=== PATIENT | female | born 1960 | race Caucasian/White ===

== ENCOUNTER → 2016-06-21 | Outpatient (CLI) | payer MEDICAID ==
[~2016-06-21] MED LIST: CYCL5TAB PO; DICL50TA4 PO; LISI-552 PO; ROSU10TA PO
--- NOTE | 2016-06-21 16:22 | Diagnostic Imaging Report ---
INDICATION: Fell on knee. EXAMINATION: Four views, nonweightbearing, were obtained. FINDINGS: Joint space is well preserved. Articulating surfaces are smooth. Patellofemoral joint appears normal. No fractures are demonstrated. IMPRESSION: Negative left knee. Dictated by: Dictated on workstation # [id number]
== END ==
LOC: RAD 14:54
PROVIDERS: ATTEND Nurse Practitioner Family
DX: S83.91XA Sprain of unspecified site of right knee, initial encounter (principal); S83.92XA Sprain of unspecified site of left knee, initial encounter; W19.XXXA Unspecified fall, initial encounter; Y99.8 Other external cause status

== ENCOUNTER 2016-06-30 22:19 | Emergency (ER) | payer MEDICAID ==
[~2016-06-30] VITALS: Ht 165.1 cm; Wt 90.7 kg
[2016-06-30] MEDS ORDERED: LISI-552 PO (22:51)
[2016-06-30] MEDS ORDERED: CYCL5TAB PO (22:51)
[2016-06-30] MEDS ORDERED: ROSU10TA PO (22:51)
--- NOTE | 2016-06-30 22:56 | ED Upper Extremity ---
General Chief Complaint: Upper Extremity Stated Complaint: FALL/R SHOULDER PAIN Source: patient, RN notes reviewed Exam Limitations: no limitations History of Present Illness Time seen by provider: 22:56 Initial Comments As above and below. Fell on 06/20 and injured shoulder. Ran out of hydrocodone yesterday and pain has worsened since. Severity: moderate (8/10) Pain/Injury Location: right shoulder Method of Injury: fell Modifying Factors: Worse With Movement, Improves With Pain Medication ( currently out of x 24 hours) Allergies and Home Medications Allergies Coded Allergies: morphine (Verified Allergy, Unknown, 06/30/16) Home Medications Cyclobenzaprine HCl 5 Mg Tablet, Unknown Dose PO, (Reported) Diclofenac Potassium 50 Mg Tablet, 50 MG PO Q8H PRN for SHOULDER PAIN, #30 Ref 0 Prescribed by: BORIS CABRAL on 06/30/162328 Lisinopril 20 Mg Tablet, Unknown Dose PO DAILY, (Reported) Rosuvastatin Calcium 10 Mg Tablet, Unknown Dose PO, (Reported) Constitutional: see HPI : No Musculoskeletal: see HPI, other (right shoulder pain) All Other Systems Reviewed Negative Unless Noted: Yes (Negative excepted noted.) Past Fpqhcgi-Guasrl-Xjaqee Hx Patient Social History Alcohol Use: Occasionally Uses Recreational Drug Use: No Smoking Status: Current Everyday Smoker Type Used: Cigarettes 2nd Hand Smoke Exposure: Yes Recent Foreign Travel: No Contact w/Someone Who Travel: No Recent Hopitalizations: No Seasonal Allergies Seasonal Allergies: No Surgeries HX Surgeries: Yes (LEFT SHOULDER) Surgeries: Oophorectomy, Orthopedic Respiratory Hx Respiratory Disorders: No Cardiovascular Hx Cardiac Disorders: Yes Cardiac Disorders: High Cholesterol, Hypertension Neurological Hx Neurological Disorders: No Reproductive System Hx Reproductive Disorders: No Genitourinary Hx Genitourinary Disorders: No Gastrointestinal Hx Gastrointestinal Disorders: No Musculoskeletal Hx Musculoskeletal Disorders: No Endocrine Hx Endocrine Disorders: No HEENT HX ENT Disorders: No Cancer Hx Cancer: No Psychosocial Hx Psychiatric Problems: No Integumentary HX Skin/Integumentary Disorder: No Blood Transfusions Hx Blood Disorders: No Physical Exam Vital Signs Vital Sign - Last 12Hours 06/30/16 22:52 Temp 98.8 Pulse 99 Resp 18 B/P (MAP) 133/98 Pulse Ox 95 O2 Delivery Room Air Capillary Refill : General Appearance: WD/WN, no apparent distress Neck: normal inspection Cardiovascular: regular rate, rhythm Respiratory: no respiratory distress Shoulder: No deformity, No ecchymosis, limited ROM (right shoulder), pain ( pain right shoulder), No swelling Neurologic/Psychiatric: no motor/sensory deficits, alert, oriented x 3 Skin: warm/dry Progress/Results/Core Measures Results/Orders My Orders Orders - BORIS CABRAL DO Im/Sub-Q Injection Non-Ab Ed (06/30/16 ) Vital Signs/I&O Diagnostic Imaging Diagonstic Imaging: Xray Plain Films/CT/US/NM/MRI: other (right shoulder reveals DJD AC joint but nothing acute) Departure Impression Impression: Primary Impression: Fall Additional Impression: Shoulder pain, acute Disposition: HOME, SELF-CARE Condition: Stable Departure-Patient Inst. Decision time for Depature: 23:26 Referrals: CHITO ALAN DO Patient Instructions: Bursitis (DC), How to Use a Shoulder Sling Add. Discharge Instructions: All discharge instructions reviewed with patient and/or family. Voiced understanding. WILL NEED ORTHOPEDIC FOLLOW UP IF NOT DOING BETTER IN NEXT 5-7 DAYS. MAY NEED A MRI FOR STARTERS. Scripts Diclofenac Potassium (Diclofenac Potassium) 50 Mg Tablet 50 MG PO Q8H Y for SHOULDER PAIN, #30 TAB 0 Refills Prov: BORIS CABRAL DO 06/30/16 BORIS CABRAL DO Jun 30, 2016 22:56
[2016-06-30] MEDS ORDERED: DICL50TA4 PO (23:29)
[2016-06-30] MEDS ORDERED: DEXAMETHASONE PF 10 MG/ML (DECADRON) VIAL IM ONE (23:30)
[2016-06-30] MEDS ORDERED: RX-TRAMADOL 50 MG (ULTRAM) TAB PPK#4 PO STA (23:31)
[2016-06-30 23:40] VITALS: BP 139/87
--- NOTE | 2016-07-01 08:08 | Diagnostic Imaging Report ---
INDICATION: Fall with right shoulder pain AP, oblique, and transscapular views the right shoulder are obtained. No fracture or dislocation is seen. There is no acute bony abnormality. There is degenerative change of the AC joint. There are some calcifications at the rotator cuff insertion which may represent calcific tendinitis. IMPRESSION: Findings compatible with calcific tendinitis as well as degenerative change of the AC joint. No acute fracture or dislocation. Dictated by: Dictated on workstation # [id number]
== END 2016-06-30 23:37 | disposition home or self-care (01) ==
LOC: EDUNIT# 22:19 → ER 22:21
DX: S49.91XA Unspecified injury of right shoulder and upper arm, initial encounter (principal); I10 Essential (primary) hypertension; F17.210 Nicotine dependence, cigarettes, uncomplicated; W19.XXXA Unspecified fall, initial encounter; Y99.8 Other external cause status
CPT/HCPCS: 73030; 96372; 99283

== ENCOUNTER 2016-12-22 18:46 | Emergency (ER) | payer OTHER, MEDICAID ==
[~2016-12-22] VITALS: Ht 165.1 cm; Wt 97.5 kg
[2016-12-22] MEDS ORDERED: TETANUS,DIPTH,PERTUSS P/F (BOOSTRIX) 0.5 ML VIAL IM STA (19:49)
[2016-12-22] MEDS ORDERED: HYDROcodone/APAP 7.5 MG/325 MG (LORTAB, LORCET PLUS) TABLET PO STA (19:49)
--- NOTE | 2016-12-22 19:53 | ED Fall/Injury ---
General Chief Complaint: Upper Extremity Stated Complaint: FALL/L ARM/WRIST PAIN Nursing Triage Note: pt reports l wrist,l shoulder, r/l knee, l ankle, and r hip pain after falling on a concrete step coming out of the [facility]. pt reports it was around 1640. Source: patient Exam Limitations: no limitations History of Present Illness Time seen by provider: 19:53 Initial Comments 56 yo female patient presents to the ED with c/o falling after tripping on a broken concrete step at the [facility] at 1640 today. Patient c/o left wrist pain, left shoulder pain, bilat knee pain, rt hip pain, neck pain, and headache. Denies LOC, confusion, numbness, weakness, or back pain. Occurred: other (1640 today) Injuries/Pain Location: neck, upper extremity, lower extremity Context: tripped Loss of Consciousness: no loss of consciousness Modifying Factors: Worse With Movement Allergies and Home Medications Allergies Coded Allergies: morphine (Verified Allergy, Unknown, 06/30/16) Home Medications Cyclobenzaprine HCl 10 Mg Tablet, 10 MG PO Q8H PRN for SPASMS, #10 Ref 0 Prescribed by: RENAE HUI on 12/22/162112 Lisinopril 20 Mg Tablet, Unknown Dose PO DAILY, (Reported) Rosuvastatin Calcium 10 Mg Tablet, Unknown Dose PO, (Reported) Tramadol HCl 50 Mg Tablet, 50 MG PO Q4H PRN for pain, #14 Ref 0 Prescribed by: RENAE HUI on 12/22/162112 Constitutional: no symptoms reported Eyes: No Symptoms Reported Ears, Nose, Mouth, Throat: no symptoms reported Respiratory: No cough, No short of breath Cardiovascular: No chest pain, No palpitations Gastrointestinal: no symptoms reported Genitourinary: no symptoms reported Musculoskeletal: No back pain, joint pain, joint swelling, neck pain Skin: change in color (bruising of the bilateral knees), other (abrasions of the bilat knees) Psychiatric/Neurological: Denies Headache, Denies Numbness, Denies Paresthesia , Denies Seizure, Denies Tingling, Denies Weakness All Other Systems Reviewed Negative Unless Noted: Yes (Negative excepted noted.) Past Mxphovc-Ftwbbg-Bhdeee Hx Patient Social History Alcohol Use: Occasionally Uses Number of Drinks Today: AA Alcohol Beverage of Choice: Beer Recreational Drug Use: No Smoking Status: Former Smoker Type Used: Cigarettes Former Smoker, Quit: Dec 04, 2015 2nd Hand Smoke Exposure: Yes Recent Foreign Travel: No Contact w/Someone Who Travel: No Recent Infectious Disease Expo: No Recent Hopitalizations: No Physical Abuse: No Sexual Abuse: No Mistreated: No Fear: No Immunizations Up To Date Tetanus Booster (TDap): Unknown Seasonal Allergies Seasonal Allergies: No Surgeries History of Surgeries: Yes (LEFT SHOULDER) Surgeries: Oophorectomy, Orthopedic Respiratory History of Respiratory Disorde: No Cardiovascular History of Cardiac Disorders: Yes Cardiac Disorders: High Cholesterol, Hypertension Neurological History of Neurological Disord: No Reproductive System Hx Reproductive Disorders: No Gastrointestinal History of Gastrointestinal Di: No Musculoskeletal History of Musculoskeletal Dis: No Endocrine History of Endocrine Disorders: No Cancer History of Cancer: No Psychosocial History of Psychiatric Problem: No Suicide Risk Score: 0 Integumentary History of Skin or Integumenta: No Blood Transfusions History of Blood Disorders: No Reviewed Nursing Assessment Reviewed/Agree w Nursing PMH: Yes Family Medical History Significant Family History: No Pertinent Family Hx Physical Exam Vital Signs Vital Sign - Last 12Hours 12/22/16 19:25 Temp 97.0 Pulse 98 Resp 18 B/P (MAP) 140/91 Pulse Ox 98 Capillary Refill : Less Than 3 Seconds General Appearance: WD/WN, no apparent distress HEENT: PERRL/EOMI, normal ENT inspection, TMs normal, pharynx normal, other ( normocephalic, atraumatic) Neck: full range of motion, supple, normal inspection, tender lateral, No tender midline Cardiovascular: normal peripheral pulses, regular rate, rhythm, no murmur Respiratory: lungs clear, normal breath sounds, no respiratory distress, no accessory muscle use, other (left anterior ribs and clavicle ttp without swelling or ecchymosis.) Peripheral Pulses: 2+ Dorsalis Pedis (R), 2+ Left Dors-Pedis (L), 2+ Radial Pulses (R), 2+ Radial Pulses (L) Gastrointestinal: normal bowel sounds, non tender, soft, no organomegaly Back: normal inspection, no vertebral tenderness Extremities: normal capillary refill, pelvis stable, other (left proximal humerus, left forearm, left wrist, and left hand TTP. Mild swelling noted of the proximal humerus and left wrist. Bilat hips, bilateral knees TTP. Ecchymosis, abrasions, and mild swelling noted of the anterior knees bilaterally.) Neurologic/Psychiatric: rotary surface grinder II-XII nml as tested, no motor/sensory deficits, alert, normal mood/affect, oriented x 3 Skin: normal color, warm/dry, ecchymosis (bilateral anterior knee ecchymosis and abrasions noted.) [place] Coma Score Best Eye Response: (4) Open Spontaneously Best Verbal Response: (5) Oriented Best Motor Response: (6) Obeys Commands Reina Total: 15 Progress/Results/Core Measures Results/Orders My Orders Orders - RENAE HUI PA Chest 1 View, Ap/Pa Only (12/22/16 19:49) Forearm, Left, 2 Views (12/22/16 19:49) Humerus, Left, 2 Views (12/22/16 19:49) Wrist, Left, 3 Views Or More (12/22/16 19:49) Knee, Left, 3 Views (12/22/16 19:49) Pelvis (12/22/16 19:49) Ct Cervical Spine Wo (12/22/16 19:49) Dipht,Pertuss(Acell),Tet Adult (Boostrix (12/22/16 19:49) Hydrocodone/Apap 7.5/325 Tab (Lortab 7. (12/22/16 19:49) Vaccine Administration Single (12/22/16 ) Vital Signs/I&O Vital Sign - Last 12Hours 12/22/16 12/22/16 19:25 21:21 Temp 97.0 Pulse 98 84 Resp 18 16 B/P (MAP) 140/91 Pulse Ox 98 95 Blood Pressure Mean: 107 Diagnostic Imaging Diagonstic Imaging: CT Plain Films/CT/US/NM/MRI: c-spine Comments FINDINGS: There is no identified facet joint subluxation or dislocation. There are multilevel very mild facet degenerative changes of the cervical spine. There is no asymmetric widening of the cervical disc spaces. There is no identified acute fracture of the cervical spine. There are multilevel disc and uncovertebral degenerative changes of the cervical spine. There is moderate disc height loss at C5-C6 and C6-C7 with posterior osteophytes at these levels. CT is limited for assessment of disc pathology as well as assessing non-bony causes of foraminal and spinal stenosis. There are mild degenerative changes at the C1-C2 articulation. Very partially visualized portions of the lung apices are clear. IMPRESSION: 1. No identified acute abnormality of the cervical spine. 2. Moderate disc and uncovertebral degenerative changes of the cervical spine most notable at C5-C6 and C6-C7. Dictated by: Dictated on workstation # [id number] Reviewed: Reviewed by Me (radiology report reviewed by me) Diagonstic Imaging: Xray Plain Films/CT/US/NM/MRI: other (wrist) Comments FINDINGS: There is an area of cystic change within the waist of the scaphoid. There is no identified acute fracture or dislocation. There is no radiopaque foreign body. Joint spaces are relatively well preserved. IMPRESSION: 1. No identified acute bony abnormality of the left wrist. Dictated by: Dictated on workstation # [id number] Reviewed: Reviewed by Me (radiology report reviewed by me) Diagonstic Imaging: Xray Plain Films/CT/US/NM/MRI: pelvis Comments FINDINGS: The hips are not obviously dislocated. There is no abnormal widening of the pubic symphysis or sacroiliac joints. There is no identified acute fracture. There are facet degenerative changes at L5-S1. There is mild degenerative type enthesopathy at the bilateral greater trochanters and iliac crests. IMPRESSION: No identified acute bony abnormality of the pelvis. Dictated by: Dictated on workstation # [id number] Reviewed: Reviewed by Me (radiology report reviewed by me) Diagonstic Imaging: Xray Plain Films/CT/US/NM/MRI: forearm Comments FINDINGS: There is degenerative type enthesopathy adjacent to the proximal common flexor and common extensor tendon attachments. There is no identified large elbow joint effusion. There is no identified acute fracture of the radius or ulna. There is no radiopaque foreign body. IMPRESSION: No identified acute bony abnormality of the left forearm. Dictated by: Dictated on workstation # [id number] Reviewed: Reviewed by Me (radiology report reviewed by me) Diagonstic Imaging: Xray Plain Films/CT/US/NM/MRI: chest Comments FINDINGS: Heart size and mediastinal contours are unremarkable. There is no identified pneumothorax. There is no large pleural effusion. There is no identified focal airspace consolidation. There are mild right acromioclavicular degenerative changes. There is no identified significantly displaced rib fracture. IMPRESSION: No identified acute cardiopulmonary abnormality. Dictated by: Dictated on workstation # [id number] Reviewed: Reviewed by Me (radiology report reviewed by me) Diagonstic Imaging: Xray Plain Films/CT/US/NM/MRI: knee Comments FINDINGS: There is a small ossification projecting near the femoral origin of the superficial component of the medial collateral ligament complex. This potentially may reflect sequela of remote prior medial collateral ligament injury. The lateral view is obliquely positioned. There is no identified left knee joint effusion. There is degenerative type enthesopathy at the distal quadriceps tendon attachment. There is no pronounced patellofemoral compartment joint space loss. There are small patellofemoral compartment osteophytes. The medial and lateral compartments are not significantly narrowed. There is no identified acute fracture. IMPRESSION: 1. No identified acute bony abnormality of the left knee. 2. Mild patellofemoral compartment osteoarthritis. 3. Sequela of remote prior medial collateral ligament injury. Dictated by: Dictated on workstation # [id number] Reviewed: Reviewed by Me (radiology report reviewed by me) Diagonstic Imaging: Xray Plain Films/CT/US/NM/MRI: other (left humerus) Comments FINDINGS: There are mild left acromioclavicular degenerative changes. There is questionable mild widening of the left acromioclavicular joint. Correlation clinically may be helpful. There is no obvious dislocation of the left glenohumeral joint. There is limited evaluation of the shoulder on radiographs of the humerus. There is degenerative type enthesophyte formation at the origin of the common proximal flexor and extensor tendons. There is no identified acute fracture. There is limited evaluation at the level of the elbow joint. IMPRESSION: 1. Question mild widening of the left acromioclavicular joint which could relate to acromioclavicular joint separation injury. Recommend correlation clinically. 2. Mild left acromioclavicular degenerative changes. 3. No identified acute fracture. Dictated by: Dictated on workstation # [id number] Reviewed: Reviewed by Me (radiology report reviewed by me) Departure Communication (Admissions) Progress Notes all diagnostic findings discussed with the patient. plan for dsch to home. Patient instructed to f/u with her PCP if no improvement in symptoms. Impression Impression: Primary Impression: Neck muscle strain Qualified Codes: S16.1XXA - Strain of muscle, fascia and tendon at neck level , initial encounter Additional Impressions: Sprain of wrist, left Qualified Codes: S63.502A - Unspecified sprain of left wrist, initial encounter Left shoulder strain Qualified Codes: S46.912A - Strain of unspecified muscle, fascia and tendon at shoulder and upper arm level, left arm, initial encounter Contusion of knee, left Qualified Codes: S80.02XA - Contusion of left knee, initial encounter Contusion of knee, right Qualified Codes: S80.01XA - Contusion of right knee, initial encounter Abrasion of knee, left Qualified Codes: S80.212A - Abrasion, left knee, initial encounter Abrasion of knee, right Qualified Codes: S80.211A - Abrasion, right knee, initial encounter Disposition: 01 HOME, SELF-CARE Condition: Improved Departure-Patient Inst. Decision time for Depature: 21:09 Referrals: NO,LOCAL PHYSICIAN (PCP/Family) Primary Care Physician Patient Instructions: Common Wrist Injuries (DC), Muscle Strain (DC) Add. Discharge Instructions: All discharge instructions reviewed with patient and/or family. Voiced understanding. Medications as instructed. Ibuprofen 800 mg by mouth every 8 hours as needed for pain. Tylenol extra strength [id number] as directed for pain. Ice pack for 20 minute intervals for 2-3 days, then use a heating pad as needed for pain. No lifting or strenuous activity in 5-7 days, then increase activity as tolerated. Follow-up with your primary care physician for recheck if no improvement in symptoms. Return to the emergency department for worsened symptoms or any other concerns. Scripts Cyclobenzaprine HCl (Cyclobenzaprine HCl) 10 Mg Tablet 10 MG PO Q8H Y for SPASMS, #10 TAB 0 Refills Prov: RENAE HUI 12/22/16 Tramadol HCl (Tramadol HCl) 50 Mg Tablet 50 MG PO Q4H Y for pain, #14 TAB 0 Refills Prov: RENAE HUI 12/22/16 Work/School Note: Local [employer]ing RENAE HUI Dec 22, 2016 19:53
--- NOTE | 2016-12-22 20:32 | Diagnostic Imaging Report ---
EXAMINATION: Left forearm, 2 views. COMPARISON: None. HISTORY: 56-year-old female, fall. Left forearm pain. FINDINGS: There is degenerative type enthesopathy adjacent to the proximal common flexor and common extensor tendon attachments. There is no identified large elbow joint effusion. There is no identified acute fracture of the radius or ulna. There is no radiopaque foreign body. IMPRESSION: No identified acute bony abnormality of the left forearm. Dictated by: Dictated on workstation # [id number]
--- NOTE | 2016-12-22 20:33 | Diagnostic Imaging Report ---
EXAMINATION: Left wrist, 3 views. COMPARISON: None. HISTORY: 56-year-old female, fall. Left wrist pain. FINDINGS: There is an area of cystic change within the waist of the scaphoid. There is no identified acute fracture or dislocation. There is no radiopaque foreign body. Joint spaces are relatively well preserved. IMPRESSION: 1. No identified acute bony abnormality of the left wrist. Dictated by: Dictated on workstation # [id number]
--- NOTE | 2016-12-22 20:35 | Diagnostic Imaging Report ---
EXAMINATION: Pelvis, single view. COMPARISON: None. HISTORY: 56-year-old female, fall. Left hip pain. FINDINGS: The hips are not obviously dislocated. There is no abnormal widening of the pubic symphysis or sacroiliac joints. There is no identified acute fracture. There are facet degenerative changes at L5-S1. There is mild degenerative type enthesopathy at the bilateral greater trochanters and iliac crests. IMPRESSION: No identified acute bony abnormality of the pelvis. Dictated by: Dictated on workstation # [id number]
--- NOTE | 2016-12-22 20:37 | Diagnostic Imaging Report ---
EXAMINATION: Left humerus, 2 views. COMPARISON: None. HISTORY: 56-year-old female, fall. Left arm pain. FINDINGS: There are mild left acromioclavicular degenerative changes. There is questionable mild widening of the left acromioclavicular joint. Correlation clinically may be helpful. There is no obvious dislocation of the left glenohumeral joint. There is limited evaluation of the shoulder on radiographs of the humerus. There is degenerative type enthesophyte formation at the origin of the common proximal flexor and extensor tendons. There is no identified acute fracture. There is limited evaluation at the level of the elbow joint. IMPRESSION: 1. Question mild widening of the left acromioclavicular joint which could relate to acromioclavicular joint separation injury. Recommend correlation clinically. 2. Mild left acromioclavicular degenerative changes. 3. No identified acute fracture. Dictated by: Dictated on workstation # [id number]
--- NOTE | 2016-12-22 20:37 | Diagnostic Imaging Report ---
EXAMINATION: Chest radiograph, portable AP view. DATE: December 22, 2016 at 2027 hours. INDICATION: 56-year-old female, fall. COMPARISON: None. FINDINGS: Heart size and mediastinal contours are unremarkable. There is no identified pneumothorax. There is no large pleural effusion. There is no identified focal airspace consolidation. There are mild right acromioclavicular degenerative changes. There is no identified significantly displaced rib fracture. IMPRESSION: No identified acute cardiopulmonary abnormality. Dictated by: Dictated on workstation # [id number]
--- NOTE | 2016-12-22 20:39 | Diagnostic Imaging Report ---
EXAMINATION: Left knee, 3 views. COMPARISON: June 21, 2016. HISTORY: 56-year-old female, fall. Left anterior knee pain. FINDINGS: There is a small ossification projecting near the femoral origin of the superficial component of the medial collateral ligament complex. This potentially may reflect sequela of remote prior medial collateral ligament injury. The lateral view is obliquely positioned. There is no identified left knee joint effusion. There is degenerative type enthesopathy at the distal quadriceps tendon attachment. There is no pronounced patellofemoral compartment joint space loss. There are small patellofemoral compartment osteophytes. The medial and lateral compartments are not significantly narrowed. There is no identified acute fracture. IMPRESSION: 1. No identified acute bony abnormality of the left knee. 2. Mild patellofemoral compartment osteoarthritis. 3. Sequela of remote prior medial collateral ligament injury. Dictated by: Dictated on workstation # [id number]
--- NOTE | 2016-12-22 20:40 | Diagnostic Imaging Report ---
PROCEDURE: CT cervical spine without contrast. TECHNIQUE: Multiple contiguous axial images were obtained through the cervical spine without the use of intravenous contrast. Sagittal and coronal reformations were then performed. DATE: December 22, 2016. INDICATION: 56-year-old female, fall. Neck pain. COMPARISON: None. FINDINGS: There is no identified facet joint subluxation or dislocation. There are multilevel very mild facet degenerative changes of the cervical spine. There is no asymmetric widening of the cervical disc spaces. There is no identified acute fracture of the cervical spine. There are multilevel disc and uncovertebral degenerative changes of the cervical spine. There is moderate disc height loss at C5-C6 and C6-C7 with posterior osteophytes at these levels. CT is limited for assessment of disc pathology as well as assessing non-bony causes of foraminal and spinal stenosis. There are mild degenerative changes at the C1-C2 articulation. Very partially visualized portions of the lung apices are clear. IMPRESSION: 1. No identified acute abnormality of the cervical spine. 2. Moderate disc and uncovertebral degenerative changes of the cervical spine most notable at C5-C6 and C6-C7. Dictated by: Dictated on workstation # [id number]
[2016-12-22] MEDS ORDERED: TRAM50TA2 PO (21:13)
[2016-12-22] MEDS ORDERED: CYCL10TA9 PO (21:13)
[2016-12-22 21:21] VITALS: BP 135/87
== END 2016-12-22 21:21 | disposition home or self-care (01) ==
LOC: EDUNIT# 18:46 → ER 18:47
DX: S63.502A Unspecified sprain of left wrist, initial encounter (principal); S46.912A Strain of unspecified muscle, fascia and tendon at shoulder and upper arm level, left arm, initial encounter; S80.02XA Contusion of left knee, initial encounter; S80.01XA Contusion of right knee, initial encounter; E78.00 Pure hypercholesterolemia, unspecified; I10 Essential (primary) hypertension; Z23 Encounter for immunization; Z98.890 Other specified postprocedural states; Z87.891 Personal history of nicotine dependence; W10.9XXA Fall (on) (from) unspecified stairs and steps, initial encounter; Y92.240 Courthouse as the place of occurrence of the external cause
CPT/HCPCS: 71010; 72125; 72170; 73060; 73090; 73110; 73562; 90471; 90715; 99284

== ENCOUNTER → 2017-02-12 | Outpatient (CLI) | payer OTHER, MEDICAID ==
[~2017-02-12] MED LIST changes: +CYCL10TA9 PO; +TRAM50TA2 PO
--- NOTE | 2017-02-12 21:28 | Diagnostic Imaging Report ---
Transabdominal and transvaginal pelvic ultrasound. INDICATION: Left lower pelvic pain. History of oophorectomy, not sure which side. The patient has had spotting, but regular cycles have stopped about one year ago. FINDINGS: The uterus is 6.2 x 3.5 x 3.2 cm. The myometrium is slightly heterogeneous with no discrete mass. The endometrial thickness is 4 mm. The ovaries are obscured by bowel gas. IMPRESSION: Heterogeneous myometrium with no discrete focal lesion. The endometrial stripe is slightly irregular near the fundal area with no significant thickening, however. If symptoms persist, a follow-up study to reevaluate the endometrium is suggested. Dictated by: Dictated on workstation # [id number]
== END ==
LOC: RAD 09:50
PROVIDERS: ATTEND Nurse Practitioner
DX: Z12.31 Encounter for screening mammogram for malignant neoplasm of breast (principal); N93.8 Other specified abnormal uterine and vaginal bleeding
CPT/HCPCS: 76830; 76856; 77067